=== PATIENT | female | born 1970 | race Caucasian/White ===

== ENCOUNTER 2021-10-12 19:01 | Emergency (ER) | payer BC ==
[2021-10-12 19:16] VITALS: O2SAT 100
[2021-10-12 19:46] VITALS: BP 134/103; PULSE 80
--- NOTE | 2021-10-12 19:46 | ERPHSYRPT ---
- History of Present Illness Time Seen by Provider: 10/12/21 19:55 Source: patient Exam Limitations: no limitations Patient Subjective Stated Complaint: My nephew was found today and I forgot to take my b/p meds last night, and my b/p machine was reading high and I'm really stressed. Triage Nursing Assessment: Pt c/o high blood pressure. Pt is very anxious due to just finding out about 2 hours ago that her nephew unexpectedly. Pt forgot to take her b/p med last night and then with the stress today her b/p was high, machine at home would not read it. Pt took her b/p pill at home and 2 baby aspirins. Pt has a headache shooting up the back of her neck. Physician History: Patient is a 51-year-old female presents to emergency department for evaluation of high blood pressure. Patient states she forgot to take her blood pressure medication yesterday. She states she is currently under a significant amount of stress. Patient states her 37-year-old nephew was found . Patient is now very anxious. She took her blood pressure at home and found it to be elevated. Patient took a baby aspirin as well as her blood pressure medication prior to arrival to our ED. Patient is a little more calm at this time. She initially experienced a headache. Patient currently has no headache. No chest pain. No shortness of breath. No nausea no vomiting. No diaphoresis. No weakness. No numbness tingling. Patient states she wants to go home at this time. Patient voices no other complaints or concerns at this time. Timing/Duration: today Severity: moderate Modifying Factors: Improves With: medication Associated Symptoms: denies symptoms Allergies/Adverse Reactions: No Known Drug Allergies Allergy (Verified 10/12/21 19:26) Home Medications: Thyroid,Pork [Studio Hand Thyroid] 30 mg PO DAILY 10/12/21 [History] lisinopriL [Zestril] 2.5 mg PO HS 10/12/21 [History] Hx Tetanus, Diphtheria Vaccination/Date Given: Yes Hx Influenza Vaccination/Date Given: No Hx Pneumococcal Vaccination/Date Given: No Immunizations Up to Date: Yes Travel Risk - International Travel Have you traveled outside of the country in past 3 weeks: No - Coronavirus Screening Are you exhibiting any of the following symptoms?: No Close contact with a COVID-19 positive Pt in past 14-21 Days: No - Vaccine Status Have you recieved a Covid-19 vaccination: Yes Clinical Care Manager: Moderna - Vaccination Dates Date of 2cond Vaccination (if applicable): 08/2021 - Review of Systems Constitutional: No Symptoms, No Fever, No Chills Eyes: No Symptoms Ears, Nose, & Throat: No Symptoms Respiratory: No Symptoms, No Cough, No Dyspnea Cardiac: No Symptoms, No Chest Pain, No Edema, No Syncope Abdominal/Gastrointestinal: No Symptoms, No Abdominal Pain, No Nausea, No Vomiting, No Diarrhea Genitourinary Symptoms: No Symptoms, No Dysuria Musculoskeletal: No Symptoms, No Back Pain, No Neck Pain Skin: No Symptoms, No Rash Neurological: No Symptoms, No Dizziness, No Focal Weakness, No Sensory Changes Psychological: No Symptoms Endocrine: No Symptoms Hematologic/Lymphatic: No Symptoms Immunological/Allergic: No Symptoms All Other Systems: Reviewed and Negative - Past Medical History Pertinent Past Medical History: Yes Neurological History: Migraines, Seizures ENT History: No Pertinent History Cardiac History: Hypertension Respiratory History: Bronchitis, CHF, Pneumonia Endocrine Medical History: No Pertinent History Musculoskeletal History: No Pertinent History GI Medical History: No Pertinent History History: No Pertinent History Psycho-Social History: No Pertinent History Female Reproductive Disorders: No Pertinent History Other Medical History: seizure after of son, HTN after of son/ eclampsia - Past Surgical History Past Surgical History: Yes Neuro Surgical History: No Pertinent History Cardiac: No Pertinent History Respiratory: No Pertinent History Gastrointestinal: Cholecystectomy Genitourinary: No Pertinent History Musculoskeletal: No Pertinent History Female Surgical History: Section - Social History Smoking Status: Never smoker Exposure to second hand smoke: Yes Drug Use: none Patient Lives Alone: No - Female History Hx Now: No - Nursing Vital Signs Nursing Vital Signs: Initial Vital Signs Temperature 97.7 F 10/12/21 19:14 Pulse Rate 89 10/12/21 19:14 Respiratory Rate 18 10/12/21 19:14 Blood Pressure 178/109 10/12/21 19:14 O2 Sat by Pulse Oximetry 100 10/12/21 19:14 Pain Scale Pain Intensity 0 - Physical Exam General Appearance: no apparent distress, alert Eye Exam: PERRL/EOMI, eyes nml inspection Ears, Nose, Throat Exam: normal ENT inspection, TMs normal, pharynx normal, moist mucous membranes Neck Exam: normal inspection, non-tender, supple, full range of motion Respiratory Exam: normal breath sounds, lungs clear, airway intact, No respiratory distress Cardiovascular Exam: regular rate/rhythm, normal heart sounds, normal peripheral pulses Gastrointestinal/Abdomen Exam: soft, normal bowel sounds, No tenderness, No mass Back Exam: normal inspection, normal range of motion, No CVA tenderness, No vertebral tenderness Extremity Exam: normal inspection, normal range of motion, pelvis stable Neurologic Exam: alert, oriented x 3, cooperative, normal mood/affect, nml cerebellar function, nml station & gait, sensation nml, No motor deficits Skin Exam: normal color, warm, dry, No rash Lymphatic Exam: No adenopathy SpO2 Interpretation: normal SpO2: 100 O2 Delivery: Room Air - Course Nursing assessment & vital signs reviewed: Yes EKG Interpreted by Me: RATE (76), Sinus Rhythm, NORMAL AXIS, NORMAL INTERVALS - Progress Progress: improved Progress Note: Patient's blood pressure trending downward now. Patient is much more calm at this time. Patient requesting discharge at this time. Patient has no complaints. Headache resolved. No chest pain or shortness of breath. No nausea vomiting or diaphoresis. Patient attributes her elevated blood pressure to missing her blood pressure medication yesterday and the significant stress she is currently experiencing. However patient did take her medication prior to arrival to our ED. She feels much better at this time. We will discharge patient according to her request. EKG was normal sinus rhythm. No ischemic changes or STEMI. Dictation disclaimer. 10/12/21 20:05 Counseled pt/family regarding: diagnosis, need for follow-up - Departure Departure Disposition: Home Clinical Impression: Hypertension, Grieving Condition: Stable Critical Care Time: No Referrals: CURRY VITAL MD [Primary Care Provider] - Follow up/PCP as directed Instructions: High Blood Pressure (DC) Additional Instructions: Discharge/Care Plan JIL PALOMINO was seen on 10/12/21 in the Emergency Room. The patient was counseled regarding Diagnosis,Lab results, Imaging studies, need for follow up and when to return to the Emergency Room. Prescriptions given: Discharge Note I have spoken with the patient and/or caregivers. I have explained the patient's condition, diagnosis and treatment plan based on the information available to me at this time. I have answered the patient's and/or caregiver's questions and addressed any concerns. The patient and/or caregivers have as good understanding of the patient's diagnosis, condition and treatment plan as can be expected at this point. The vital signs have been stable. The patient's condition is stable and appropriate for discharge from the emergency department. The patient will pursue further outpatient evaluation with the primary care physician or other designated or consulting physician as outlined in the discharge instructions. The patient and/or caregivers are agreeable to this plan of care and follow-up instructions have been explained in detail. The patient and/or caregivers have received these instruction. The patient/and or caregivers are aware that any significant change in condition or worsening of symptoms should prompt an immediate return to this or the closest emergency department or call 911.
== END 2021-10-12 19:55 | disposition home or self-care (01) ==
LOC: ED 19:01
DX: I10 Essential (primary) hypertension (principal); F43.22 Adjustment disorder with anxiety
CPT/HCPCS: 36000; 93005; 99284